=== PATIENT | female | born 1955 | race Caucasian/White ===

== ENCOUNTER 2016-08-13 11:28 | Emergency (ER) | payer OTHER ==
[2016-08-13] MEDS ORDERED: ALBUTEROL NEB 2.5 MG/3 ML INH ONE (13:20)
[2016-08-13] MEDS ORDERED: predniSONE 20 MG TABLET ONE (13:23)
== END 2016-08-13 13:46 | disposition home or self-care (01) ==
DX: J06.9 Acute upper respiratory infection, unspecified (principal); B97.89 Other viral agents as the cause of diseases classified elsewhere; J44.9 Chronic obstructive pulmonary disease, unspecified; F17.200 Nicotine dependence, unspecified, uncomplicated
CPT/HCPCS: 71020; 94640; 99283; J7512; J7613

== ENCOUNTER 2017-04-06 12:55 | Outpatient (CLI) | payer OTHER ==
--- NOTE | 2017-04-06 18:00 | XRAY Report ---
CHEST, TWO VIEWS: 04/06/2017 HISTORY: Chest pressure. COMPARISON: 08/13/2016 Mild bilateral central airway thickening is stable. The lungs are grossly clear. There is no pleura l fluid or pneumothorax. The heart size is normal. No significant bony pathology is identified. IMPRESSION: NO DEFINITE ACUTE FINDINGS ARE SEEN. CLEAR LUNGS. JOB #: [id number] EXT JOB #:[id number]
== END 2017-04-06 12:56 | disposition home or self-care (01) ==
LOC: DI 12:55
PROVIDERS: ATTEND Family Medicine
DX: J45.909 Unspecified asthma, uncomplicated (principal)
CPT/HCPCS: 71020

== ENCOUNTER 2017-06-01 14:25 | Outpatient (CLI) | payer OTHER ==
--- NOTE | 2017-06-05 14:20 | Mammography Report ---
DIGITAL SCREENING MAMMOGRAM: 06/01/2017 CLINICAL INDICATION: A 61-year-old with family history of breast cancer, for screening. The patient's previous mammogram from 2003 has been purged. This will serve as a new baseline. TECHNIQUE: Routine CC and MLO projections were obtained of the breasts. FINDINGS: The breasts demonstrate scattered fibroglandular densities bilaterally. No suspicious mass es, clustered microcalcifications, or regions of architectural distortion are identified. IMPRESSION: NEGATIVE EXAMINATION. RECOMMENDATION: ROUTINE ANNUAL SCREENING UNLESS OTHERWISE CLINICALLY INDICATED. BIRADS CATEGORY 1-NEGATIVE. STANDARD QUALIFYING STATEMENTS 1. This examination was reviewed with the aid of Computer-Aided Detection (CAD). 2. A negative or benign imaging report should not delay biopsy if clinically suspicious findings are present. Consider surgical consultation if warranted. More than 5% of cancers are not identified by i maging. 3. Dense breasts may obscure an underlying neoplasm. JOB #: [id number] EXT JOB #:[id number]
== END 2017-06-01 14:26 | disposition home or self-care (01) ==
LOC: DI.N 14:25
PROVIDERS: ATTEND Family Medicine
DX: Z12.31 Encounter for screening mammogram for malignant neoplasm of breast (principal); Z80.3 Family history of malignant neoplasm of breast
CPT/HCPCS: 77067

== ENCOUNTER 2017-10-20 15:23 | Outpatient (CLI) | payer OTHER ==
--- NOTE | 2017-10-20 16:58 | XRAY Report ---
LUMBAR SPINE THREE VIEWS: 10/20/2017 HISTORY: Back pain. COMPARISON: CT scan abdomen and pelvis 03/11/2006. FINDINGS: There is minimal anterolisthesis of L4 on L5. The vertebral bodies are otherwise unremarkable in height and alignment. There is mild L4-L5 disk space narrowing. Remaining disk spaces are well maintained. Mild degenerative facet joint arthropathy lower lumbar levels. IMPRESSION: EARLY DEGENERATIVE CHANGE LUMBAR SPINE, MOST MARKED L4-L5. OTHERWISE, NEGATIVE. TD: 10/20/2017 16:57
== END 2017-10-20 15:24 | disposition home or self-care (01) ==
LOC: DI.N 15:23
PROVIDERS: ATTEND Internal Medicine
DX: M47.896 Other spondylosis, lumbar region (principal); M51.36 Other intervertebral disc degeneration, lumbar region; M43.16 Spondylolisthesis, lumbar region
CPT/HCPCS: 72100

== ENCOUNTER 2021-10-12 08:59 | Outpatient (CLI) | payer SELFPAY | END 2021-10-12 09:00 | disposition short-term general hospital (02) | LOC: EMS 08:59 | DX: R06.00 Dyspnea, unspecified (principal); R51.9 Headache, unspecified | CPT/HCPCS: A0425; A0427 ==

== ENCOUNTER 2022-12-14 13:30 | Emergency (ER) | payer MEDICARE ==
[2022-12-14 14:10] LABS: BASOPHILS # (AUTO) 0.1 10^3/uL (0.0-0.1); BASOPHILS % (AUTO) 1.4 %; EOSINOPHILS # (AUTO) 0.1 10^3/uL (0.0-0.7); EOSINOPHILS % (AUTO) 1.1 %; HGB - HEMOGLOBIN 13.7 g/dL (12.0-16.0); LYMPHOCYTES # (AUTO) 1.2 10^3/uL (1.5-3.5); MEAN CORPUSCULAR HEMOGLOBIN 31.5 pg (27.0-31.0); MEAN CORPUSCULAR HGB CONC 31.9 g/dL (32.0-36.0); MEAN CORPUSCULAR VOLUME 98.9 fL (81.0-99.0); MEAN PLATELET VOLUME 9.2 fL (7.9-10.8); MONOCYTES # (AUTO) 0.9 10^3/uL (0.0-1.0); MONOCYTES % (AUTO) 10.7 %; NEUTROPHILS # (AUTO) 5.7 10^3/uL (1.5-6.6); NEUTROPHILS % (AUTO) 71.6 %; PLT - PLATELET COUNT 427 10^3/uL (130-450); RED BLOOD COUNT 4.35 10^6/uL (4.20-5.40); RED CELL DISTRIBUTION WIDTH 13.9 % (12.0-15.0)
[2022-12-14 14:19] LABS: BILIRUBIN,URINE NEGATIVE (NEGATIVE); CLARITY,URINE CLEAR (CLEAR); GLUCOSE, URINE (UA) NEGATIVE (NEGATIVE); KETONES,URINE (UA) NEGATIVE (NEGATIVE); LEUKOCYTE ESTERASE, URINE NEGATIVE (NEGATIVE); NITRITE,URINE NEGATIVE (NEGATIVE); OCCULT BLOOD,URINE NEGATIVE (NEGATIVE); PROTEIN,URINE 100 mg/dL (NEGATIVE); UROBILINOGEN,URINE 0.2 (NORMAL) E.U./dL (NORMAL)
--- NOTE | 2022-12-14 14:21 | ED Physician Documentation ---
History of Present Illness - Stated complaint Stated Complaint: LT SIDE PX - Chief complaint Chief Complaint: Resp - Additonal information Additional information: 67-year-old female who has a history of oxygen dependent COPD presents to the emergency department for evaluation of several weeks of left flank and CVA pain. She states that she is gone to a local walk-in clinic and was advised she likely had muscle strain but muscle relaxers are not helping. It hurts with laying sitting and standing. She denies any new cough. She states that she has recently lost weight. Though she is unsure of how much her pants are simply fitting looser. She quit smoking last year when she was hospitalized for COPD. She does take 2 inhalers that include long-acting beta agonist as well as an inhaled corticosteroid. Review of Systems Constitutional: denies: Fever, Chills Cardiac: denies: Chest pain / pressure, Palpitations, Pedal edema, Calf pain Respiratory: reports: Dyspnea, Cough. denies: Hemoptysis, Wheezing GI: reports: Abdominal Pain : denies: Dysuria, Hematuria Skin: reports: Reviewed and negative Musculoskeletal: reports: Reviewed and negative PD PAST MEDICAL HISTORY - Past Medical History Respiratory: Asthma - Past Surgical History Past Surgical History: No - Present Medications Home Medications: Ambulatory Orders Medication Instructions Recorded Confirmed Albuterol [Ventolin Hfa] 2 puffs INH Q4H PRN #1 inhaler 06/27/15 HYDROcod/ACETAM 5/325 [Searcy 5/325] 1 tablet PO BID PRN #10 tablet 12/14/22 - Allergies Allergies/Adverse Reactions: Allergies Allergy/AdvReac Type Severity Reaction Status Date / Time prednisone Allergy Unknown Verified 06/27/15 14:20 - Social History Does the pt smoke?: Yes Smoking Status: Current every day smoker Does the pt drink ETOH?: No Does the pt have substance abuse?: No - POLST Patient has POLST: No PD ED PE NORMAL - General General: Alert and oriented X 3, No acute distress. No: Well developed/nourished (Thin cachectic parents) - HEENT HEENT: PERRL - Neck Neck: Supple, no meningeal sign - Cardiac Cardiac: RRR, No murmur - Respiratory Respiratory: No respiratory distress, Clear bilaterally - Abdomen Abdomen: Normal bowel sounds, Soft. No: Non tender (Generalized nonfocal abdominal tenderness. No guarding or rebound. Focal tenderness is noted along the left CVA region. No crepitus ecchymosis or erythema or rash noted) - Back Back: No CVA TTP - Derm Derm: Normal color, Warm and dry - Extremities Extremities: No deformity - Neuro Neuro: Alert and oriented X 3, weir fisherman 2-12 intact Eye Opening: Spontaneous Motor: Obeys Commands Verbal: Oriented GCS Score: 15 Results - Vitals Vitals: Vital Signs - 24 hr 12/14/22 12/14/22 12/14/22 13:35 13:51 14:04 Temperature 36.5 C Heart Rate 92 Respiratory 24 16 17 Rate Blood Pressure 136/70 H O2 Saturation 92 If not protocol : Oxygen Flow, liters/minute 12/14/22 14:34 Temperature Heart Rate 88 Respiratory 18 Rate Blood Pressure 122/8 L O2 Saturation 98 If not protocol 2 : Oxygen Flow, liters/minute Oxygen O2 Source Nasal cannula Oxygen Flow Rate 2 - Labs Labs: Laboratory Tests 12/14/22 12/14/22 12/14/22 14:00 14:05 14:05 WBC 8.0 RBC 4.35 Hgb 13.7 Hct 43.0 MCV 98.9 MCH 31.5 H MCHC 31.9 L RDW 13.9 Plt Count 427 MPV 9.2 Neut # (Auto) 5.7 Lymph # (Auto) 1.2 L [place] # (Auto) 0.9 Eos # (Auto) 0.1 Baso # (Auto) 0.1 Absolute Nucleated RBC 0.00 Nucleated RBC % 0.0 Sodium 134 L Potassium 4.3 Chloride 97 L Carbon Dioxide 30 Anion Gap 7.0 BUN 16 Creatinine 0.5 Estimated GFR (MDRD) 124 Glucose 125 H Calcium 9.2 Total Bilirubin 0.5 AST 27 ALT 26 Alkaline Phosphatase 61 Total Protein 7.2 Albumin 3.9 Globulin 3.3 Albumin/Globulin Ratio 1.2 Lipase 28 Urine Color YELLOW Urine Clarity CLEAR Urine pH 7.0 Ur Specific [place] 1.025 Urine Protein 100 H Urine Glucose (UA) NEGATIVE Urine Ketones NEGATIVE Urine Occult Blood NEGATIVE Urine Nitrite NEGATIVE Urine Bilirubin NEGATIVE Urine Urobilinogen 0.2 (NORMAL) Ur Leukocyte Esterase NEGATIVE Urine RBC 0-5 Urine WBC 0-3 Ur Squamous Epith Cells MOD Squamous H Urine Bacteria Moderate H Urine Casts 0-2 Granular Casts Ur Microscopic Review INDICATED Urine Culture Comments NOT INDICATED - Rads (name of study) Ct abd pelvis Relevant Findings:: Final report received (Severe bibasilar pulmonary emphysematous change. No evidence of acute abdominal process.) Chest w Relevant Findings:: Final report received (Small indeterminate pulmonary nodules bilaterally. Largest left upper lobe measuring 0.6 cm. Recommend follow-up CT in 6 months. Severe emphysematous change. Left seventh and eighth rib fractures. No pneumothorax) PD Medical Decision Making - ED course Complexity details: reviewed results, re-evaluated patient, considered differential, d/w patient ED course: 67-year-old female who has a history of oxygen dependent COPD presents to the emergency department for evaluation of several weeks of left flank and CVA tenderness. Seen recently local walk-in clinic and advised that She had a muscle strain and was started on a muscle relaxer. Despite this no improvement in symptoms. She denies any cough or hemoptysis. No recent falls or trauma. Here in the emergency department on exam she had focal tenderness across the left flank and in the CVA region. I did obtain a CBC and electrolytes which per my interpretation showed no acute worrisome findings. Initially I obtained a chest x-ray for evaluation of possibility of pneumonia or pneumothorax but this was without acute findings subsequently a CT of the chest was completed with contrast to evaluate for subclinical pneumonia or occult rib fractures. CT did show left seventh and eighth rib fractures without findings of pneumonia or pneumothorax surrounding. No acute findings were seen on CT of the abdomen. We did make an incidental note of pulmonary nodules bilaterally. Patient was advised to follow these closely with PCP to have repeat CT imaging completed. I am going to prescribe a limited amount of Searcy for the rib fractures. Otherwise patient will follow closely with her PCP. The usual emergent return precautions for worsening symptoms was discussed Departure - Departure Disposition: 01 Home, Self Care Clinical Impression: Pulmonary nodules Left rib fracture Qualifiers: Encounter type: initial encounter Rib fracture type: multiple ribs Fracture type: closed Qualified Code(s): S22.42XA - Multiple fractures of ribs, left side, initial encounter for closed fracture COPD (chronic obstructive pulmonary disease) Qualifiers: COPD type: unspecified COPD Qualified Code(s): J44.9 - Chronic obstructive pulmonary disease, unspecified Condition: Stable Record reviewed to determine appropriate education?: Yes Instructions: ED Fx Rib Prescriptions: HYDROcod/ACETAM 5/325 [Searcy 5/325] 1 tablet PO BID PRN #10 tablet PRN Reason: Pain Comments: As discussed at the bedside the CT scan does show that your left seventh and eighth ribs are fractured. There is no puncture or collapse of the lung surrounding this. This is most likely the cause of the pain. The CT scan also showed multiple pulmonary nodules. In former smokers these need to be monitored very closely. I recommend you follow closely with your primary care provider. You should have a repeat CT scan of your chest in about 6 months time to ensure that the pulmonary nodules are stable in size and not enlarging which could be a sign of cancer. In general I expect that your rib fracture pain will begin to get better. For more severe symptoms pain I have sent a limited prescription of Searcy to the [facility] in [place]. Please discuss this ED visit with your primary care doctor. Return to the ER if you develop any sudden severe chest pain have severe shortness of air or fainting episodes. I am prescribing a short course of narcotic pain medication for you. These are potentially dangerous and addictive medications that should be used carefully. These medications may constipate you. Take an znxy-qvs-wptymvy stool softener (docusate) twice daily with plenty of water while taking these medications. If you go 24 hours without a bowel movement, take bgih-jht-[id number] miralax, per package instructions. Do not drink or drive while taking these medications. If you received narcotic or sedating medications while in the emergency department, do not drive for 24 hours. Store this medication in a safe, secure place and out of reach of children. It is a violation of federal law to give or sell this medication to another person or to use in a manner other than prescribed. The ED will not refill narcotic prescriptions, including prescriptions lost or stolen. To dispose of unwanted medications: 1. [facility] at [address] in [place] has a medication drop box. They accept prescription medications (in pill form) Monday through Monday 9:00 a.m. to 5:00 p.m. 2. The [facility] [employer] accepts prescription medications (in pill form only) for disposal year round. Call for more information. 3. Contact the [facility] for the next [facility] sponsored prescription drug collection event. , [phone], or [phone]; Note that many narcotic pain relievers also contain Tylenol/acetaminophen. Please ensure that your total dose of acetaminophen from all sources does not exceed 3 g (3000 mg) per day.
[2022-12-14 14:23] LABS: ALBUMIN 3.9 g/dL (3.2-5.5); ALBUMIN/GLOBULIN RATIO 1.2 (1.0-2.2); BILIRUBIN,TOTAL 0.5 mg/dL (0.2-1.0); CALCIUM 9.2 mg/dL (8.5-10.3); CREATININE 0.5 mg/dL (0.4-1.0); POTASSIUM 4.3 mmol/L (3.5-5.0); TOTAL PROTEIN 7.2 g/dL (6.7-8.2)
[2022-12-14 14:34] VITALS: BP 122/8
[2022-12-14] MEDS ORDERED: iohexoL-300 100 ML VIAL ONE (14:35)
[2022-12-14 14:37] LABS: WBC,URINE 0-3 /HPF (0-5)
[2022-12-14 14:38] LABS: RBC,URINE 0-5 /HPF (0-5); SQUAMOUS EPITHELIAL CELL,UR MOD Squamous (<= Few)
[2022-12-14 14:39] LABS: BACTERIA,URINE Moderate /HPF (None Seen); CASTS, URINE 0-2 Granular Casts /LPF
[2022-12-14] MEDS ORDERED: fentaNYL 100 MCG/2 ML VIAL ONE ×2 (14:56→15:18)
[2022-12-14] MEDS ORDERED: PROPOFOL 200 MG/20 ML VIAL IVP ONE (14:56)
[2022-12-14] MEDS ORDERED: MIDAZOLAM 2 MG/2 ML VIAL ONE ×2 (14:56→15:18)
--- NOTE | 2022-12-14 14:56 | ANESTHESIA ---
Pre-Anesthesia VS, & Labs - Diagnosis incarcerated left inguinal herina - Procedure left open hernia repair Vital Signs: Temp Pulse Resp BP Pulse Ox O2 Flow Rate 36.5 C 88 18 122/8 L 98 2 12/14/22 13:35 12/14/22 14:34 12/14/22 14:34 12/14/22 14:34 12/14/22 14:34 12/14/22 14:34 Height: 5 ft 2 in Weight (kg): 37.376 kg Body Mass Index: 15.0 BMI Classification: Underweight - NPO >8 hours - Is Patient ?: No - Lab Results Current Lab Results: Laboratory Tests 12/14/22 14:05: Sodium 134 L, Potassium 4.3, Chloride 97 L, Carbon Dioxide 30, Anion Gap 7.0, BUN 16, Creatinine 0.5, Estimated GFR (MDRD) 124, Glucose 125 H, Calcium 9.2, Total Bilirubin 0.5, AST 27, ALT 26, Alkaline Phosphatase 61, Total Protein 7.2, Albumin 3.9, Globulin 3.3, Albumin/Globulin Ratio 1.2, Lipase 28 12/14/22 14:05: WBC 8.0, RBC 4.35, Hgb 13.7, Hct 43.0, MCV 98.9, MCH 31.5 H, MCHC 31.9 L, RDW 13.9, Plt Count 427, MPV 9.2, Neut # (Auto) 5.7, Lymph # (Auto) 1.2 L, [place] # (Auto) 0.9, Eos # (Auto) 0.1, Baso # (Auto) 0.1, Absolute Nucleated RBC 0.00, Nucleated RBC % 0.0 Fish Bones: 12/14/22 14:05 12/14/22 14:05 Home Medications and Allergies Allergies/Adverse Reactions: Allergies Allergy/AdvReac Type Severity Reaction Status Date / Time prednisone Allergy Unknown Verified 06/27/15 14:20 Anes History & Medical History - Anesthetic History Anesthesia Complications: reports: No previous complications - Medical History Cardiovascular: reports: None Pulmonary: reports: Asthma, COPD Gastrointestinal: reports: None Urinary: reports: None Neuro: reports: None Musculoskeletal: reports: None Endocrine/Autoimmune: reports: None Blood Disorders: reports: None Skin: reports: None Smoking Status: Never smoker History of Cancer?: No Other Past Medical History: USES HOME OXYGEN @2Lpm NC... Exam General: Alert, Oriented x3 Dental: WNL Mouth Opening: Greater than 4 Fingerbreadths Neck Mobility: Normal Mallampati classification: II Thyromental Distance: greater than 6 cm Respiratory: Lungs clear Cardiovascular: Regular rate, Normal S1, Normal S2 Plan Anesthesia Type: General Consent for Procedure(s) Verified and Reviewed: Yes Code Status: Attempt Resuscitation ASA classification: 3-Severe systemic disease Is this case an emergency?: Yes
[2022-12-14] MEDS ORDERED: ROCURONIUM 50 MG/5 ML VIAL ONE (14:57)
[2022-12-14] MEDS ORDERED: NALOXONE 0.4 MG/ML VIAL IVP PRN (14:59)
[2022-12-14] MEDS ORDERED: ATROPINE ABBOJECT 1 MG/10 ML SYRINGE IVP PRN (14:59)
[2022-12-14] MEDS ORDERED: ONDANSETRON 4 MG/2 ML VIAL IVP PRN (14:59)
[2022-12-14] MEDS ORDERED: HYDROmorphone 0.5 MG/0.5 ML SYRINGE IVP PRN (14:59)
[2022-12-14] MEDS ORDERED: MORPHINE 2 MG/ML CARPUJECT IVP PRN (14:59)
[2022-12-14] MEDS ORDERED: METOCLOPRAMIDE 10 MG/2 ML VIAL IVP PRN (14:59)
[2022-12-14] MEDS ORDERED: ePHEDrine 50 MG/ML VIAL IVP PRN (14:59)
[2022-12-14] MEDS ORDERED: fentaNYL 100 MCG/2 ML VIAL IVP PRN (14:59)
[2022-12-14] MEDS ORDERED: LACTATED RINGERS 1,000 ML IV SCH (15:00)
[2022-12-14] MEDS ORDERED: LIDOCAINE-PF 2% 10 ML AMP SUBQ ONE (15:01)
--- NOTE | 2022-12-14 15:33 | CT Report ---
PROCEDURE: ABDOMEN/PELVIS W INDICATIONS: left flank pain CONTRAST: 100ml Omnipaque 300 TECHNIQUE: After the administration of intravenous contrast, 5 mm thick sections acquired from the diaphragms to the symphysis. 5 mm thick coronal and sagittal reformats were acquired. For radiation dose reducti on, the following was used: automated exposure control, adjustment of mA and/or kV according to floresita ent size. COMPARISON: CT chest from the same date FINDINGS: Image quality: Excellent. Lung bases and heart: Severe bibasilar emphysematous change. Heart size is within normal limits. Liver: No solid mass. Gallbladder and biliary tree: No radiopaque stones or wall thickening. No biliary dilation. Spleen: No splenomegaly. Pancreas: No pancreatic ductal dilation. Adrenals: No adrenal nodule. Kidneys and ureters: No hydronephrosis. No renal cystic lesion which requires follow up. No solid mas s. Bowel and peritoneum: No bowel distension. No pathologic free fluid. Mild diverticulosis without evid ence of diverticulitis. Lymph nodes: No central or retroperitoneal adenopathy. Vessels: No infrarenal aortic aneurysm. PELVIS Reproductive organs: Unremarkable. Bladder: No abnormal wall thickening, accounting for underdistension. Pelvic lymph nodes: No pelvic adenopathy by size criteria. Bones: No aggressive osseous abnormality. Other: No significant ventral or inguinal hernia. IMPRESSION: 1. Severe bibasilar pulmonary emphysematous change. 2. No evidence of acute abdominal process. Reviewed by: Juanpablo Schroeder MD on 12/14/2022 3:32 PM PDT Approved by: Juanpablo Schroeder MD on 12/14/2022 3:32 PM PDT Station ID: [id number]
--- NOTE | 2022-12-14 15:52 | XRAY Report ---
PROCEDURE: Chest 1 View X-Ray INDICATIONS: chest pain TECHNIQUE: One view of the chest was acquired. COMPARISON: 04/06/2017. FINDINGS: Surgical changes and devices: None. Lungs and pleura: No pleural effusions or pneumothorax. Severe emphysematous change. Mediastinum: Mediastinal contours appear normal. Heart size is normal. Bones and chest wall: No suspicious bony lesions. Overlying soft tissues appear unremarkable. IMPRESSION: Severe emphysematous change. No acute cardiopulmonary process. Reviewed by: Juanpablo Schroeder MD on 12/14/2022 3:51 PM PDT Approved by: Juanpablo Schroeder MD on 12/14/2022 3:51 PM PDT Station ID: [id number]
--- NOTE | 2022-12-14 16:06 | CT Report ---
PROCEDURE: CHEST W INDICATIONS: left CVA pain; weight loss CONTRAST: 100ml Omnipaque 300 TECHNIQUE: After the administration of intravenous contrast, 1 mm axial images were acquired from the pulmonary apices through the posterior costophrenic angles. Axial 5 mm soft tissue kernel reconstructions were performed as well as 8 mm axial MIP and coronal and sagittal 5 mm reformations. For radiation dose reduction, the following was used: automated exposure control, adjustment of mA and/or kV according to patient size. COMPARISON: Same day CT abdomen pelvis and CXR. FINDINGS: Image quality: Excellent. Lungs and pleura: -Right lower lobe spiculated pulmonary nodule measuring 0.5 cm, (3/198). -Left upper lobe pulmonary nodule measuring 0.6 cm, (3/146). -Left lower lobe pulmonary nodule measuring 0.2 cm, (3/214). Severe emphysematous change. No consolidation. No pleural effusions. No pneumothorax. No suspicious p ulmonary nodules which require follow up. Mediastinum: Heart size is normal. No pericardial effusions. No mediastinal adenopathy by size criter ia. No large vessel abnormality. Chest wall and lower neck: Thyroid is unremarkable. No axillary or supraclavicular adenopathy by size . Bones: No aggressive osseous abnormality. Left lateral seventh and eighth rib fractures. No significa nt displacement. Upper Abdomen: Please see separate dictated same day CT abdomen pelvis. IMPRESSION: 1. Small indeterminate pulmonary nodules bilaterally. Largest in the left upper lobe measures 0.6 cm. -Recommend follow-up CT chest in 6 months. 2. Severe emphysematous change. 3. Left 7-8th rib fractures. No pneumothorax. Reviewed by: Anmol Thompson MD on 12/14/2022 4:05 PM PDT Approved by: nAmol Thompson MD on 12/14/2022 4:05 PM PDT Station ID: [id number]
[2022-12-14] MEDS ORDERED: iohexoL-300 100 ML VIAL IVP ONE (16:51)
== END 2022-12-14 16:26 | disposition home or self-care (01) ==
LOC: ED 13:30
DX: R91.8 Other nonspecific abnormal finding of lung field (principal); S22.42XA Multiple fractures of ribs, left side, initial encounter for closed fracture; X58.XXXA Exposure to other specified factors, initial encounter; J44.9 Chronic obstructive pulmonary disease, unspecified; F17.200 Nicotine dependence, unspecified, uncomplicated
CPT/HCPCS: 36415; 71045; 71260; 74177; 80053; 81001; 83690; 85025; 99284; 99285; Q9967; 81003; 87086

== ENCOUNTER 2023-01-06 11:35 | Outpatient (CLI) | payer MEDICARE | END 2023-01-06 11:36 | disposition left against medical advice (07) | LOC: EMS 11:35 | DX: R53.1 Weakness (principal); R41.0 Disorientation, unspecified; R20.0 Anesthesia of skin ==

== ENCOUNTER 2023-01-06 19:14 | Outpatient (CLI) | payer MEDICARE | END 2023-01-06 19:15 | disposition short-term general hospital (02) | LOC: EMS 19:14 | DX: R53.1 Weakness (principal); M54.2 Cervicalgia; R45.1 Restlessness and agitation | CPT/HCPCS: A0425; A0427 ==

== ENCOUNTER 2023-01-06 19:40 | Emergency (ER) | payer MEDICARE ==
[2023-01-06] MEDS ORDERED: SODIUM CHLORIDE 0.9% 1,000 ML IV STA ×2 (19:44)
[2023-01-06 20:13] LABS: BASOPHILS % (AUTO) 0.2 %; HCT - HEMATOCRIT 34.8 % (37.0-47.0); HGB - HEMOGLOBIN 10.6 g/dL (12.0-16.0); LYMPHOCYTES # (AUTO) 0.4 10^3/uL (1.5-3.5); LYMPHOCYTES % (AUTO) 2.4 %; MEAN CORPUSCULAR HEMOGLOBIN 31.7 pg (27.0-31.0); MEAN CORPUSCULAR HGB CONC 30.5 g/dL (32.0-36.0); MEAN CORPUSCULAR VOLUME 104.2 fL (81.0-99.0); MEAN PLATELET VOLUME 11.2 fL (7.9-10.8); MONOCYTES # (AUTO) 0.7 10^3/uL (0.0-1.0); MONOCYTES % (AUTO) 4.4 %; NEUTROPHILS # (AUTO) 15.2 10^3/uL (1.5-6.6); NEUTROPHILS % (AUTO) 92.2 %; NRBC ABSOLUTE COUNT (AUTO) 0.02 x10^3/uL; NUCLEATED RED BLOOD CELLS AUTO 0.1 /100WBC; PLT - PLATELET COUNT 113 10^3/uL (130-450); RED BLOOD COUNT 3.34 10^6/uL (4.20-5.40); RED CELL DISTRIBUTION WIDTH 13.4 % (12.0-15.0); WHITE BLOOD COUNT 16.5 x10^3/uL (4.8-10.8)
--- NOTE | 2023-01-06 20:14 | ED Physician Documentation ---
History of Present Illness - Stated complaint Stated Complaint: weakness - Chief complaint Chief Complaint: Abd Pain - Additonal information Additional information: 67-year-old female presents emergency department for evaluation of generalized weakness, back chest and abdominal pain. She reports that for the last 2 days she has felt generally weak and nauseated, also reporting abdominal pain with radiation to the back. She has had some anorexia. EMS was summoned to the house and on arrival they found her to be profoundly hypotensive with a blood pressure in the 60s/30s. They report she had nonpalpable pulses and dusky extremities. They placed a peripheral IV and infused about 400 mL of saline enroute. During transport the patient remained alert and conversant. Presentation to the emergency department she remains awake though profoundly hypotensive with a blood pressure trending down into the 40s over 20s. I am unable to palpate any peripheral pulses and her extremities are dusky, But she does have brisk cap refill. I immediately ordered 2 L of crystalloid to infuse but given the severe hypotension a central venous line was placed emergently at the bedside without consent being obtained. Labs were then obtained from the central line. I ordered an urgent angio of chest/abdomen and pelvis for concerns of possible AO dissection. pt's EKG is grossly abnormal. Sinus with RBBB but diffuse deep TV inversions anteriorlateral leads with no previous for comparrison. Once the central line was placed I initiated a levophed gtt for a goal map of 60 mmhg as well as started broad spectrum abx with vanco and cefepime Past medical history is most significant for COPD oxygen dependent on 2 L nasal cannula at baseline. No current tobacco use. Patient takes only prescribed albuterol and Tylenol. No history of hypertension. She is not anticoagulaed. Patient was seen by myself in late November for left flank pain. work-up in the emergency department at that time did show some left seventh and eighth rib fractures without pneumonia or pneumothorax surrounding. She was subsequently discharged home. Patient had been well until just a few days ago. 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 : None HEENT: None Psych: None Musculoskeletal: None Derm: None - Past Surgical History Past Surgical History: No - Present Medications Home Medications: Ambulatory Orders Medication Instructions Recorded Confirmed Albuterol [Ventolin Hfa] 2 puffs INH Q4H PRN #1 inhaler 06/27/15 HYDROcod/ACETAM 5/325 [Kelly 5/325] 1 tablet PO BID PRN #10 tablet 12/14/22 - Allergies Allergies/Adverse Reactions: Allergies Allergy/AdvReac Type Severity Reaction Status Date / Time prednisone Allergy Unknown Verified 01/06/23 19:46 - Social History Does the pt smoke?: Yes Smoking Status: Current every day smoker Does the pt drink ETOH?: No Does the pt have substance abuse?: No - Immunizations Immunizations are current?: No Immunizations: TDAP >10years/unknown - POLST Patient has POLST: No PD ED PE EXPANDED - General General: Alert, No acute distress - Cardiac Cardiac: Regular Rate, Murmur Present, Other (non palpable pulses; busty purple extermities X4; Brisk cap refill) - Respiratory Respiratory: Clear to ausultation angel luis. No: Distress, Labored - Abdomen Abdomen: Tender to palpation (Generally tender abdomen without rebound. No bruit auscultated) - Neuro Neuro: Alert and Oriented X 3, CNII-XII intact - GCS Eye Opening: Spontaneous Motor: Obeys Commands Verbal: Oriented Total: 15 Results - Vitals Vitals: Vital Signs - 24 hr 01/06/23 01/06/23 01/06/23 19:42 20:25 20:55 Temperature 36.6 C Heart Rate 79 82 87 Respiratory 22 19 24 Rate Blood Pressure 56/35 L 56/20 L O2 Saturation 95 87 L If not protocol 5 5 : Oxygen Flow, liters/minute 01/06/23 01/06/23 01/06/23 21:04 21:12 21:34 Temperature Heart Rate 90 89 93 Respiratory 20 17 22 Rate Blood Pressure 145/120 H 84/65 L 99/52 L O2 Saturation 89 L 92 91 L If not protocol 5 : Oxygen Flow, liters/minute 01/06/23 01/06/23 01/06/23 21:59 22:35 22:48 Temperature Heart Rate 90 95 Respiratory 15 16 Rate Blood Pressure 117/56 L 108/60 O2 Saturation 100 99 If not protocol 5 3 5 : Oxygen Flow, liters/minute 01/06/23 23:04 Temperature Heart Rate 89 Respiratory 13 Rate Blood Pressure 112/62 O2 Saturation 98 If not protocol : Oxygen Flow, liters/minute Oxygen O2 Source BIPAP Oxygen Flow Rate 3 - EKG (time done) 2011 EKG releavant findings:: EKG personally interpreted by author of this note. Relevant findings are: Rate: Rate (enter#) (77) Rhythm: NSR Intervals: RBBB Ischemia: T wave inversion (T wave inversion anterior lateral leads) Compare to prior EKG: Old EKG unavailable - Labs Labs: Laboratory Tests 01/06/23 01/06/23 01/06/23 20:01 20:01 20:01 WBC 16.5 H RBC 3.34 L Hgb 10.6 L Hct 34.8 L MCV 104.2 H MCH 31.7 H MCHC 30.5 L RDW 13.4 Plt Count 113 L MPV 11.2 H Neut # (Auto) 15.2 H Lymph # (Auto) 0.4 L [place] # (Auto) 0.7 Eos # (Auto) 0.0 Baso # (Auto) 0.0 Absolute Nucleated RBC 0.02 Nucleated RBC % 0.1 PT INR VBG pH VBG pCO2 VBG pO2 VBG HCO3 VBG Total CO2 VBG O2 Saturation VBG Base Excess Sodium 135 Potassium 7.1 H* Chloride 99 L Carbon Dioxide 24 Anion Gap 12.0 BUN 52 H Creatinine 2.7 H Estimated GFR (MDRD) 18 L Glucose 129 H Lactic Acid 4.2 H* Calcium 5.8 L* Total Bilirubin 1.4 H AST > 5200 H ALT 4890 H Alkaline Phosphatase 79 Troponin I High Sens Total Protein 5.2 L Albumin 2.8 L Globulin 2.4 Albumin/Globulin Ratio 1.2 Lipase 40 Procalcitonin Urine Color Urine Clarity Urine pH Ur Specific Bruin Urine Protein Urine Glucose (UA) Urine Ketones Urine Occult Blood Urine Nitrite Urine Bilirubin Urine Urobilinogen Ur Leukocyte Esterase Urine RBC Urine WBC Ur Squamous Epith Cells Urine Bacteria Urine Casts Urine Mucus Urine Culture Comments Nasal Adenovirus (PCR) Nasal B. parapertussis DNA (PCR) Nasal Coronavir 229E PCR Nasal Coronavir HKU1 PCR Nasal Coronavir NL63 PCR Nasal Coronavir OC43 PCR Nasal Enterovir/Rhinovir PCR Nasal Influenza B PCR Nasal Influenza A PCR Nasal Parainfluen 1 PCR Nasal Parainfluen 2 PCR Nasal Parainfluen 3 PCR Nasal Parainfluen 4 PCR Nasal RSV (PCR) Nasal B.pertussis DNA PCR Nasal C.pneumoniae (PCR) Arcadio Human Metapneumo PCR Nasal M.pneumoniae (PCR) Nasal SARS-CoV-2 (PCR) Blood Type Blood Type Recheck Antibody Screen 01/06/23 01/06/23 01/06/23 20:01 20:01 20:01 WBC RBC Hgb Hct MCV MCH MCHC RDW Plt Count MPV Neut # (Auto) Lymph # (Auto) [place] # (Auto) Eos # (Auto) Baso # (Auto) Absolute Nucleated RBC Nucleated RBC % PT 29.0 H INR 2.8 H VBG pH VBG pCO2 VBG pO2 VBG HCO3 VBG Total CO2 VBG O2 Saturation VBG Base Excess Sodium Potassium Chloride Carbon Dioxide Anion Gap BUN Creatinine Estimated GFR (MDRD) Glucose Lactic Acid Calcium Total Bilirubin AST ALT Alkaline Phosphatase Troponin I High Sens 2072.2 H* Total Protein Albumin Globulin Albumin/Globulin Ratio Lipase Procalcitonin 1.64 H Urine Color Urine Clarity Urine pH Ur Specific Bruin Urine Protein Urine Glucose (UA) Urine Ketones Urine Occult Blood Urine Nitrite Urine Bilirubin Urine Urobilinogen Ur Leukocyte Esterase Urine RBC Urine WBC Ur Squamous Epith Cells Urine Bacteria Urine Casts Urine Mucus Urine Culture Comments Nasal Adenovirus (PCR) Nasal B. parapertussis DNA (PCR) Nasal Coronavir 229E PCR Nasal Coronavir HKU1 PCR Nasal Coronavir NL63 PCR Nasal Coronavir OC43 PCR Nasal Enterovir/Rhinovir PCR Nasal Influenza B PCR Nasal Influenza A PCR Nasal Parainfluen 1 PCR Nasal Parainfluen 2 PCR Nasal Parainfluen 3 PCR Nasal Parainfluen 4 PCR Nasal RSV (PCR) Nasal B.pertussis DNA PCR Nasal C.pneumoniae (PCR) Arcadio Human Metapneumo PCR Nasal M.pneumoniae (PCR) Nasal SARS-CoV-2 (PCR) Blood Type Blood Type Recheck Antibody Screen 01/06/23 01/06/23 01/06/23 20:17 20:24 20:30 WBC RBC Hgb Hct MCV MCH MCHC RDW Plt Count MPV Neut # (Auto) Lymph # (Auto) [place] # (Auto) Eos # (Auto) Baso # (Auto) Absolute Nucleated RBC Nucleated RBC % PT INR VBG pH VBG pCO2 VBG pO2 VBG HCO3 VBG Total CO2 VBG O2 Saturation VBG Base Excess Sodium Potassium Chloride Carbon Dioxide Anion Gap BUN Creatinine Estimated GFR (MDRD) Glucose Lactic Acid Calcium Total Bilirubin AST ALT Alkaline Phosphatase Troponin I High Sens Total Protein Albumin Globulin Albumin/Globulin Ratio Lipase Procalcitonin Urine Color DARK YELLOW Urine Clarity CLEAR Urine pH 5.0 Ur Specific Bruin >=1.030 H Urine Protein >=300 H Urine Glucose (UA) NEGATIVE Urine Ketones NEGATIVE Urine Occult Blood NEGATIVE Urine Nitrite NEGATIVE Urine Bilirubin NEGATIVE Urine Urobilinogen 0.2 (NORMAL) Ur Leukocyte Esterase NEGATIVE Urine RBC 0-5 Urine WBC 0-3 Ur Squamous Epith Cells MOD Squamous H Urine Bacteria Rare Urine Casts 0-2 Granular Casts Urine Mucus Marked Strands Urine Culture Comments NOT INDICATED Nasal Adenovirus (PCR) NOT DETECTED Nasal B. parapertussis DNA (PCR) NOT DETECTED Nasal Coronavir 229E PCR NOT DETECTED Nasal Coronavir HKU1 PCR NOT DETECTED Nasal Coronavir NL63 PCR NOT DETECTED Nasal Coronavir OC43 PCR NOT DETECTED Nasal Enterovir/Rhinovir PCR NOT DETECTED Nasal Influenza B PCR NOT DETECTED Nasal Influenza A PCR NOT DETECTED Nasal Parainfluen 1 PCR NOT DETECTED Nasal Parainfluen 2 PCR NOT DETECTED Nasal Parainfluen 3 PCR NOT DETECTED Nasal Parainfluen 4 PCR NOT DETECTED Nasal RSV (PCR) NOT DETECTED Nasal B.pertussis DNA PCR NOT DETECTED Nasal C.pneumoniae (PCR) NOT DETECTED Arcadio Human Metapneumo PCR NOT DETECTED Nasal M.pneumoniae (PCR) NOT DETECTED Nasal SARS-CoV-2 (PCR) NOT DETECTED Blood Type A POSITIVE Blood Type Recheck Antibody Screen NEGATIVE 01/06/23 01/06/23 21:22 22:35 WBC RBC Hgb Hct MCV MCH MCHC RDW Plt Count MPV Neut # (Auto) Lymph # (Auto) [place] # (Auto) Eos # (Auto) Baso # (Auto) Absolute Nucleated RBC Nucleated RBC % PT INR VBG pH 7.050 L VBG pCO2 86.7 H VBG pO2 33.4 VBG HCO3 23.5 VBG Total CO2 26.1 VBG O2 Saturation 40.4 L VBG Base Excess -8.5 L Sodium Potassium Chloride Carbon Dioxide Anion Gap BUN Creatinine Estimated GFR (MDRD) Glucose Lactic Acid Calcium Total Bilirubin AST ALT Alkaline Phosphatase Troponin I High Sens Total Protein Albumin Globulin Albumin/Globulin Ratio Lipase Procalcitonin Urine Color Urine Clarity Urine pH Ur Specific Bruin Urine Protein Urine Glucose (UA) Urine Ketones Urine Occult Blood Urine Nitrite Urine Bilirubin Urine Urobilinogen Ur Leukocyte Esterase Urine RBC Urine WBC Ur Squamous Epith Cells Urine Bacteria Urine Casts Urine Mucus Urine Culture Comments Nasal Adenovirus (PCR) Nasal B. parapertussis DNA (PCR) Nasal Coronavir 229E PCR Nasal Coronavir HKU1 PCR Nasal Coronavir NL63 PCR Nasal Coronavir OC43 PCR Nasal Enterovir/Rhinovir PCR Nasal Influenza B PCR Nasal Influenza A PCR Nasal Parainfluen 1 PCR Nasal Parainfluen 2 PCR Nasal Parainfluen 3 PCR Nasal Parainfluen 4 PCR Nasal RSV (PCR) Nasal B.pertussis DNA PCR Nasal C.pneumoniae (PCR) Arcadio Human Metapneumo PCR Nasal M.pneumoniae (PCR) Nasal SARS-CoV-2 (PCR) Blood Type Blood Type Recheck A POSITIVE Antibody Screen - Rads (name of study) cxr Relevant Findings:: Final report received (Right-sided central line is seen with the tip near the cavoatrial junction likely protruding slightly into the right atrium. No pleural effusions or pneumothorax. Lungs are clear yet hyperexpanded) angio chest Relevant Findings:: Final report received (Negative for acute aortic pathology. Negative for pulmonary embolism. Stable pulmonary nodules. Underlying emphysematous changes are seen. No consolidation, no pleural effusions) angio abdomen Relevant Findings:: Final report received (Enlarged fatty liver. Transitional lumbar anatomy with a sacralized L5. Pulmonary emphysema. Normal aorta without acute pathology) Procedures - Central Line - Major Central Line Preparation: Unable to obtain consent, Ultrasound used, Sterile prep and drape Central line location: Right IJ Central line type: Triple lumen Central line aftercare: Chlorhexidine disc placed, Secured, Placement confirmed, No pneumothorax, No complications, Bundle checklist complete, Pt tolerated well PD Medical Decision Making - ED course Complexity details: reviewed old records, reviewed results, re-evaluated patient, considered differential, d/w patient, d/w family, d/w cost consultant (Dr. Baxter ) ED course: 67-year-old female presents to the emergency department for evaluation of several days generalized weakness anorexia and reported abdominal pain with radiation to the back. She does have a history of oxygen dependent COPD. She is no longer a smoker and takes Tylenol and albuterol only. She is not anticoagulated has no history of hypertension or history of antihypertensive medications. EMS was summoned to the house and found that she was alert, oriented, Glascow of 15 though profoundly hypotensive with a blood pressure of 60s/30s. Blood glucose was 140. Peripheral IV was placed and she was transported emergently to the ER. On presentation to the emergency department she had a blood pressure of 50/20 though she remained awake and talking. She had mottled purple extremities though brisk cap refill. I immediately placed a right IJ central venous catheter. I ordered broad-spectrum antibiotics with cefepime and Vanco as well as initiated 2 L of crystalloid. I also initiated a Levophed drip with a goal map of 60-65 or systolic blood pressure of 90. My initial concern with the reported abdominal pain with radiation to the back and her severe hypotension was that of possible aortic dissection. I also ordered initial labs that included CBC, electrolytes, lactic acid, PT/INR urinalysis and blood cultures x2. Patient does have some profound lab abnormalities include significant leukocytosis of 16,000. She has developed a mild anemia with a hemoglobin of 10. Her electrolytes show profound hyperkalemia with potassium of 7.2. She also has an elevated BUN and creatinine (52/2.7), elevated lactic acid (4.2), troponin over 2000 and significant LFT derangements. Pt is coagulapathic with an INR 2.8. Pt rayo sprofound hypocalcemia at 5.8. Procalcitonin is also elevated. In contrast her CBC and electrolytes were essentially normal 12/14/22 with her last ED visit Patient's EKG was grossly abnormal with sinus rhythm right bundle branch block and T wave depressions diffusely in the anterior lateral leads. With evidence of hyperkalemia (though no peaked T waves of ekg changes suggestiv eof hyperkalemia) and other electrolyte abnormalitiesI administered the patient 10 mg of albuterol nebulized as well as a gram of calcium gluconate, 10 units of insulin IV and an amp of D50. I subsequently administered a gram of calcium chloride IV for the calcium that was altered at 5.8. It is not clear at this time if the elevated troponin is a result of demand ischemia due to hypotension or a result of acs. 325 mg asa was administered orallyt. Pt has an elevated Pt/INR. anticoagulation was held at this time Subsequently angio of the chest abdomen pelvis revealed no evidence of pulmonary embolism or aortic dissection. As such at this time the patient presents with profound septic shock unclear source with multi-organ faulire. Blood cultures X2 are pending. Urinalysis shows no signs of infection. Given the profound abnormal troponin , lft's and GLORIA, multiple subspecialty services not available at [facility]. Subsequently I have spoken with Dr. Baxter, client services administrator at [facility] and the patient has been accepted pending bed availability later this evening after 11pm to the MICU. At that point we will anticipate flying the patient via [employer] or airlift. Patient remains on Levophed currently at 6 mics per minute with an improving blood pressure though she remains mottled and has evidence of poor perfusion. She remains alert, conversant on 5 liters nasal canula saturating low 90s. I have spoken on the phone with patient's daughter Minerva who is currently in [place] and notified her of the critical illness. She is going to be making her way to [facility]. At this time patient will be [facility] Sierra to follow-up on any events pending transfer. Appropriate [employer] paperwork completed Impression; severe septic shock unknown source Multi organ failure elevated troponin acute kidney injury abnormal LFT's elevated lactic acid History of oxygen dependent COPD - Critical Care Time(min): 120 Time Includes: Direct patient care, Reassess patient, Document care Data interpretation: Labs, Pulse ox, See progress note Procedures excluded from critical care time: Central IV - Sepsis Event Sepsis Onset Date: 01/06/23 Sepsis Onset Time: 19:30 Current Stage of Sepsis: Septic shock Initial Hypotension: MAP less than 65 mmHg Persistent Hypotension: SBP less than 90 mmHg Possible source of Sepsis: Unknown Mental/Cognitive Status: Alert/Oriented X3 Capillary refill: Less than 2 seconds Peripheral Pulse Strength: 0+ Absent Peripheral Pulse Location: Radial Bedside ultrasound performed: No Departure - Departure Disposition: 02 Transfer Acute Care Hosp Clinical Impression: Severe sepsis with septic shock, Multiple organ failure with heart failure, Abnormal LFTs, Acute kidney injury, Elevated troponin, Elevated lactic acid level, History of COPD Condition: Critical
[2023-01-06 20:17] LABS: INR 2.8 (0.8-1.2)
[2023-01-06 20:25] LABS: LACTIC ACID, VENOUS 4.2 mmol/L (0.5-2.2)
[2023-01-06] MEDS ORDERED: iohexoL-300 100 ML VIAL ONE (20:26)
[2023-01-06] MEDS ORDERED: VANCOMYCIN INJ 1 GM in SODIUM CHLORIDE 0.9% 500 ML IV STA (20:40)
[2023-01-06] MEDS ORDERED: CEFEPIME 2 GM in SODIUM CHLORIDE 0.9% MINIBAG 100 ML IV STA (20:40)
[2023-01-06] MEDS ORDERED: ALBUTEROL NEB 2.5 MG/3 ML INH STA (20:40)
[2023-01-06] MEDS ORDERED: CALCIUM GLUC 1,000MG/50ML-NACL 1,000 MG/50 ML BAG IV STA (20:41)
[2023-01-06] MEDS ORDERED: DEXTROSE 50% ABBOJECT 25 GM/50 ML SYRINGE IVP STA (20:41)
[2023-01-06] MEDS ORDERED: INSULIN REGULAR HUMAN 300 UNIT/3 ML VIAL IVP STA (20:41)
[2023-01-06] MEDS ORDERED: ASPIRIN 325 MG TABLET PO STA (20:42)
[2023-01-06] MEDS ORDERED: ALBUTEROL NEB 2.5 MG/3 ML INH ONE (20:44)
[2023-01-06 20:46] LABS: BILIRUBIN,URINE NEGATIVE (NEGATIVE); GLUCOSE, URINE (UA) NEGATIVE (NEGATIVE); KETONES,URINE (UA) NEGATIVE (NEGATIVE); LEUKOCYTE ESTERASE, URINE NEGATIVE (NEGATIVE); NITRITE,URINE NEGATIVE (NEGATIVE); OCCULT BLOOD,URINE NEGATIVE (NEGATIVE); PROTEIN,URINE >=300 mg/dL (NEGATIVE); UROBILINOGEN,URINE 0.2 (NORMAL) E.U./dL (NORMAL)
[2023-01-06 20:47] LABS: CLARITY,URINE CLEAR (CLEAR)
[2023-01-06 20:55] LABS: ALBUMIN 2.8 g/dL (3.2-5.5); ALBUMIN/GLOBULIN RATIO 1.2 (1.0-2.2); ALKALINE PHOSPHATASE 79 IU/L (42-121); ALT ALANINE AMINOTRANSFERASE 4890 IU/L (10-60); AST ASPARTATE AMINOTRANSFERASE > 5200 IU/L (10-42); BILIRUBIN,TOTAL 1.4 mg/dL (0.2-1.0); BUN - BLOOD UREA NITROGEN 52 mg/dL (6-20); CARBON DIOXIDE - CO2 24 mmol/L (21-32); CHLORIDE 99 mmol/L (101-111); CREATININE 2.7 mg/dL (0.4-1.0); GFR - MDRD 18 (>89); GLUCOSE 129 mg/dL (70-100); LIPASE 40 U/L (22-51); SODIUM 135 mmol/L (135-145); TOTAL PROTEIN 5.2 g/dL (6.7-8.2)
--- NOTE | 2023-01-06 20:55 | XRAY Report ---
PROCEDURE: Chest for Line Placement INDICATIONS: Sepsis TECHNIQUE: One view of the chest was acquired. COMPARISON: 12/14/2022, chest radiograph and chest CT FINDINGS: Surgical changes and devices: A right-sided central line is seen, with the tip seen near the cavoatr ial junction likely protruding into the right atrium less than 1 cm. Lungs and pleura: No pleural effusions or pneumothorax. Lungs are clear, yet hyperexpanded. Mediastinum: Mediastinal contours appear normal. Heart size is normal. Calcification is seen of th e aortic arch. Bones and chest wall: No suspicious bony lesions. Overlying soft tissues appear unremarkable. IMPRESSION: A right-sided central line is seen, with the tip near the cavoatrial junction, likely protruding slig htly into the right atrium. Reviewed by: Reginaldo Beaver MD on 01/06/2023 7:54 PM LACI Approved by: Reginaldo Beaver MD on 01/06/2023 7:54 PM LACI Station ID: [id number]
[2023-01-06 20:56] LABS: CALCIUM 5.8 mg/dL (8.5-10.3); POTASSIUM 7.1 mmol/L (3.5-5.0)
[2023-01-06 20:57] LABS: BACTERIA,URINE Rare /HPF (None Seen); MUCUS,URINE Marked Strands; RBC,URINE 0-5 /HPF (0-5); SQUAMOUS EPITHELIAL CELL,UR MOD Squamous (<= Few); WBC,URINE 0-3 /HPF (0-5)
[2023-01-06] MEDS ORDERED: NOREPINEPHRINE/D5W 8 MG/250 ML BAG IV SCH (21:00)
[2023-01-06] MEDS ORDERED: iohexoL-300 100 ML VIAL IVP ONE (21:01)
[2023-01-06] MEDS ORDERED: CALCIUM CHLORIDE ABBOJECT 1000MG/10 ML SYRINGE IVP STA (21:15)
--- NOTE | 2023-01-06 21:35 | CT Report ---
PROCEDURE: ANGIO ABDOMEN/PELVIS W INDICATIONS: ? AO dissection CONTRAST: IV 100 ML OMNI 300 TECHNIQUE: After the administration of intravenous contrast, 2.5 mm thick sections acquired from the diaphragm t o the symphysis. 10 mm maximum-intensity projection (MIP) reformats were then acquired. For radiati on dose reduction, the following was used: automated exposure control, adjustment of mA and/or kV ac cording to patient size. COMPARISON: 12/14/2022. Correlation is made with the accompanying chest CT. FINDINGS: Image quality: Excellent. Aorta: The aorta demonstrates normal caliber. No findings of dissection or aneurysm are seen. Mesenteric arteries: Celiac trunk, superior and inferior mesenteric arteries appear patent. Right pelvic arteries: Normal. Left pelvic arteries: Normal. Extravascular soft tissues: Emphysematous changes are seen at the lung bases. Heart size is normal. A n enlarged, fatty liver can be seen. No focal liver lesion is seen. The spleen demonstrates normal si ze and demonstrates no suspicious lesions. Gallbladder wall does not appear thickened. . Biliary s ystem is non dilated. Pancreas enhances normally. No adrenal nodules. Kidneys are normal in size a nd enhancement, without hydronephrosis. Non opacified bowel loops are normal in wall thickness and c aliber. No free fluid or air. No retroperitoneal or mesenteric adenopathy. No ventral hernias. The uterus demonstrates an unremarkable appearance for age. No adnexal masses are seen. No suspicious angelica ny lesions. No vertebral body compression fractures. Age-appropriate degenerative changes are seen. This patient has transitional anatomy. For the purposes of this examination, the level with last pa ir of ribs considered to be T12. By the summary scheme, the L5 level is relatively highly sacralized. IMPRESSION: Normal aorta, without acute pathology. Additional findings: Pulmonary emphysema this change Enlarged, fatty liver Transitional lumbar anatomy, with a sacralized L5 Reviewed by: Reginaldo Beaver MD on 01/06/2023 8:34 PM LACI Approved by: Reginaldo Beaver MD on 01/06/2023 8:34 PM LACI Station ID: [id number]
--- NOTE | 2023-01-06 21:43 | CT Report ---
PROCEDURE: ANGIO CHEST W/WO INDICATIONS: ? ao dissection CONTRAST: IV 100 ML OMNI 300 TECHNIQUE: After the administration of intravenous contrast, 2 mm axial images were acquired from the pulmonary apices to the posterior costophrenic angles during the arterial phase. In addition, 1 mm lung kernel and 5 mm soft tissue kernel reconstructions were performed. 3-dimensional coronal oblique maximum int ensity projection (MIP) reformats, 8 mm axial MIP, and 5 mm coronal and sagittal MPR reformats were t hen performed through the thorax. For radiation dose reduction, the following was used: automated exp osure control, adjustment of mA and/or kV according to patient size. COMPARISON: Abdominal CT. 12/14/2022. Correlation is made with the accompanying FINDINGS: Image quality: Excellent. Large vessels: No filling defects within the opacified pulmonary arteries, accounting for motion and contrast timing. No evidence of acute aortic syndrome or aortic aneurysm. Lungs and pleura: No consolidation. No pleural effusions. No pneumothorax. Relatively prominent emph ysematous changes are seen. Pulmonary nodules are again seen: Right lower lobe, series 7 image 185, 5 mm, stable Left upper lobe, series 7 image 126, 6 mm, stable Left lower lobe, series 7 image 182, 3 mm, stable No new pulmonary nodules are seen. Mediastinum: Heart size is normal. No pericardial effusion. No large vessel abnormality. Specifically , the aorta demonstrates a normal appearance. No mediastinal adenopathy by size criteria. Chest wall and lower neck: Thyroid is unremarkable. No axillary or supraclavicular adenopathy by size . Bones: No aggressive osseous abnormality. Upper Abdomen: Unremarkable. IMPRESSION: No acute aortic pathology is seen. Negative for pulmonary embolism. Stable pulmonary nodules. Underlying emphysematous are seen. Reviewed by: Reginaldo Beaver MD on 01/06/2023 8:41 PM LACI Approved by: Reginaldo Beaver MD on 01/06/2023 8:41 PM LACI Station ID: [id number]
[2023-01-06] MEDS ORDERED: VANCOMYCIN 1 GM VIAL ONE (21:54)
[2023-01-06 21:55] LABS: B. PARAPERTUSSIS- RESP PCR PAN NOT DETECTED; B. PERTUSSIS- RESP PCR PANEL NOT DETECTED; C. PNEUMONIAE- RESP PCR PANEL NOT DETECTED; CORONAVIRUS 229E-RESP PCR NOT DETECTED; CORONAVIRUS HKU1-RESP PCR NOT DETECTED; CORONAVIRUS NL63-RESP PCR NOT DETECTED; CORONAVIRUS OC43-RESP PCR NOT DETECTED; HUMAN METAPNEUMOVIRUS NOT DETECTED; INFLUENZA A- RESP PCR PANEL NOT DETECTED; INFLUENZA B - RESP PCR PANEL NOT DETECTED; M. PNEUMONIAE- RESP PCR PANEL NOT DETECTED; PARAINFLUENZA VIRUS 1 NOT DETECTED; PARAINFLUENZA VIRUS 2 NOT DETECTED; PARAINFLUENZA VIRUS 3 NOT DETECTED; PARAINFLUENZA VIRUS 4 NOT DETECTED; RHINOVIRUS/ENTEROVIRUS NOT DETECTED; RSV- RESP PCR PANEL NOT DETECTED; SARS-CoV-2 -RESP PCR PANEL NOT DETECTED
[2023-01-06 22:49] LABS: VBG BASE EXCESS -8.5 mmol/L (-2 - +2); VBG HCO3 23.5 mmol/L (23-28); VBG OXYGEN SATURATION 40.4 % (60-80); VBG PCO2 86.7 mmHg (41-51); VBG PO2 33.4 mmHg (25-47); VBG TOTAL CO2 26.1 mmol/L (24-29)
[2023-01-06 22:50] LABS: VBG PH 7.05 (7.31-7.41)
--- NOTE | 2023-01-06 23:00 | ED Physician Documentation ---
ED Addendum - Addendum Addendum: 01/06/23 23:00 67-year-old woman signed out to me by nurse practitioner Canelo at 10 PM shift change. Briefly appears to have septic shock of unknown source with multiorgan dysfunction. Arrangements have been made by a nurse practitioner for her to go to and we are awaiting transport. Her blood gas was reported to me by the respiratory therapist. He had attempted arterial but felt it was venous. Her pH was 7.05 with a CO2 of 86. Normal carbon dioxide level on chemistry panel both today and a month ago would suggest she is not a chronic retainer, although I do not have prior blood gases for review but this is consistent with a respiratory acidosis and we will trial BiPAP as her mental status is good. We anticipate air ambulance transfer to the [facility] soon. Care to overnight EDMD at this time pending transfer.
[2023-01-06 23:33] LABS: CALCIUM 7.4 mg/dL (8.5-10.3); CREATININE 2.5 mg/dL (0.4-1.0)
[2023-01-06 23:34] LABS: POTASSIUM 6.7 mmol/L (3.5-5.0)
[2023-01-06 23:56] VITALS: BP 111/64
== END 2023-01-07 00:14 | disposition short-term general hospital (02) ==
LOC: ED 19:40
DX: A41.9 Sepsis, unspecified organism (principal); R65.21 Severe sepsis with septic shock; N17.9 Acute kidney failure, unspecified; I50.9 Heart failure, unspecified; R77.8 Other specified abnormalities of plasma proteins; R79.89 Other specified abnormal findings of blood chemistry; R74.02 Elevation of levels of lactic acid dehydrogenase [LDH]; J44.9 Chronic obstructive pulmonary disease, unspecified; Z20.822 Contact with and (suspected) exposure to COVID-19; Z99.81 Dependence on supplemental oxygen; Z87.891 Personal history of nicotine dependence
CPT/HCPCS: 36415; 36556; 71275; 74174; 80048; 80053; 81001; 82803; 83605; 83690; 84145; 84484; 85025; 85610; 86850; 86900; 86901; 87040; 87633; 93005; 94640; 94660; 96365; 96366; 96368; 96375; 99285; 99291; 99292; A9270; J1815; J3370; Q9967; 87086